=== PATIENT | male | born 1990 | race American Indian/Alaskan Native ===

== ENCOUNTER 2019-01-23 09:48 | Emergency (ER) | payer MEDICAID, OTHER ==
[2019-01-23 09:58] VITALS: TEMP 98.4; BMI 33.7
[2019-01-23] MEDS ORDERED: Albuterol 0.083% Inhal Sol (2.5 mg/3 mL) UD IH STA (10:33)
--- NOTE | 2019-01-23 11:24 | ED PDOC ---
Arrival/HPI - General Chief Complaint: Cough, Cold, Congestion Time Seen by Provider: 01/23/19 09:58 Historian: Patient - History of Present Illness Narrative History of Present Illness (Text): 01/23/19 11:16 28yr old male with a history of asthma presents today with a 3-week history of cough. Patient denies shortness of breath. Patient states he has been having a productive cough that has worsened over the past 3 weeks. Patient states he is getting chest pain only with cough. He denies dizziness or weakness. No headaches. Denies vomiting or diarrhea. No abdominal pain. Patient states the cough is with yellow sputum. No medications have been taken at home. Patient states he has a prior history of asthma which developed after he quit smoking. Patient states he recently started smoking 3 months ago. Patient denies fevers or chills. He denies sick contacts. Pt is complaining of nasal congestion. No other complaints. Past Medical History - Provider Review Nursing Documentation Reviewed: Yes - Travel History Have you recently traveled outside [place] w/in the past 3 mons?: No - Psychiatric Hx Substance Use: No Family/Social History - Physician Review Nursing Documentation Reviewed: Yes Family/Social History: Unknown Family HX Smoking Status: Never Smoked Hx Alcohol Use: No Hx Substance Use: No Allergies/Home Meds Allergies/Adverse Reactions: Allergies No Known Allergies Allergy (Verified 01/23/19 10:05) Review of Systems - Review of Systems Constitutional: absent: Fatigue, Fevers ENT: Sinus Congestion. absent: Sore Throat Respiratory: Cough, Sputum, Wheezing. absent: SOB Cardiovascular: Chest Pain (only with cough). absent: Palpitations Gastrointestinal: absent: Abdominal Pain, Nausea, Vomiting Genitourinary Male: absent: Dysuria Musculoskeletal: absent: Arthralgias, Back Pain, Neck Pain Skin: absent: Rash Neurological: absent: Headache, Dizziness Psychiatric: absent: Anxiety, Depression Physical Exam Vital Signs Reviewed: Yes Vital Signs Temp Pulse Resp BP Pulse Ox 01/23/19 09:57 98.4 F 76 18 115/70 97 Temperature: Afebrile Blood Pressure: Normal Pulse: Regular Respiratory Rate: Normal Appearance: Positive for: Well-Appearing, Non-Toxic, Comfortable Pain Distress: None Mental Status: Positive for: Alert and Oriented X 3 - Systems Exam Head: Present: Atraumatic Ears: Present: Normal Mouth: Present: Moist Mucous Membranes, Normal Lips, Normal Tounge Pharnyx: Present: Normal. No: ERYTHEMA, Peritonsilar Swelling, Uvular Deviation Nose (External): Present: Atraumatic Nose (Internal): Present: Clear Mucous Neck: Present: Normal Range of Motion, Trachea Midline Respiratory/Chest: Present: Clear to Auscultation, Good Air Exchange. No: Respiratory Distress, Accessory Muscle Use, Wheezes, Retracting, Rhonchi, Tachypneic Cardiovascular: Present: Regular Rate and Rhythm, Normal S1, S2. No: Murmurs Abdomen: No: Tenderness Medical Decision Making ED Course and Treatment: 01/23/19 11:25 Patient is nontoxic well-appearing in no distress. Vital signs are stable. albuterol neb given; tylenol PO predisone cxr; wnl Patient is nontoxic well-appearing in no distress resting comfortably Zithromax Patient reassessment: Patient is feeling better after medications. Vital signs are stable. Lungs are clear to auscultation. I advised follow up with primary care physician within the next 2 days. I advised increase fluids and return if symptoms worsen persist or if new symptoms develop. Advised taking medications as prescribed. Patient verbalizes understanding of discharge instructions and need for immediate followup. All aspects of this case were discussed the attending of record. IMPRESSION; cough Motrin one tablet every 6 hours as needed for pain Zithromax one tablet once daily x4 days Prednisone daily x4 days Albuterol nebulizer use 3 times daily as needed for cough Increase fluids Followup with primary care physician the next 2 days Return if symptoms worsen persist or if new symptoms develop Reassessment Condition: Re-examined, Improved - RAD Interpretation Radiology Orders: 01/23/19 10:34 CHEST TWO VIEWS (PA/LAT) [RAD] Stat - Medication Orders Current Medication Orders: Discontinued Medications Acetaminophen (Tylenol 325mg Tab) 975 mg PO STAT STA Stop: 01/23/19 10:35 Last Admin: 01/23/19 10:41 Dose: 975 mg MAR Pain/Vitals Document 01/23/19 10:41 MA (Rec: 01/23/19 10:41 MA [facility]-[id number]) Pain Reassessment Is This A Pain ReAssessment? Yes Sleep Is patient sleeping during reassessment? No Presence of Pain Presence of Pain Yes Pain Scale Used Protocol: PSCALES Pain Scale Used Numeric Location Pain Location Body Site Chest Intensity 2 Scale Used Numeric Albuterol Sulfate (Albuterol 0.083% Inhal Penny (2.5 Mg/3 Ml) Ud) 2.5 mg IH STAT STA Stop: 01/23/19 10:34 Last Admin: 01/23/19 10:41 Dose: 2.5 mg Disposition/Present on Arrival - Present on Arrival Any Indicators Present on Arrival: No History of DVT/PE: No History of Uncontrolled Diabetes: No Urinary Catheter: No History of Decub. Ulcer: No History Surgical Site Infection Following: None - Disposition Have Diagnosis and Disposition been Completed?: Yes Diagnosis: Cough Disposition: HOME/ ROUTINE Disposition Time: 11:47 Patient Plan: Discharge Condition: GOOD Discharge Instructions (ExitCare): Cough, Adult (DC) Additional Instructions: Motrin one tablet every 6 hours as needed for pain Zithromax one tablet once daily x4 days Prednisone daily x4 days Albuterol nebulizer use 3 times daily as needed for cough albuterol inhaler every 4-6 hours as needed for cough. Increase fluids Followup with primary care physician the next 2 days Return if symptoms worsen persist or if new symptoms develop Prescriptions: Albuterol HFA [Ventolin HFA 90 mcg/actuation (8 g)] 2 puff IH [id number] PRN #1 inhaler PRN Reason: Cough Albuterol 0.083% [Albuterol 0.083% Inhal Penny (2.5 mg/3 ml) UD] 1 vial IH TID PRN #1 packet PRN Reason: Cough Azithromycin [Zithromax] 250 mg PO DAILY #4 tab Ibuprofen [Motrin] 600 mg PO Q6H PRN #20 tab PRN Reason: pain/fever reduction Nebulizer [Compact Compressor Nebulizer] 1 dev XX PRN PRN #1 dev PRN Reason: Cough predniSONE [predniSONE Tab] 2 tab PO DAILY #8 tab Referrals: Madeline Billy MD [Medical Doctor] - Follow up with primary Polo Hayden MD [Staff Provider] - Follow up with primary [facility] [employer] Service [Outside] - Follow up with primary Forms: [employer] ([place]), WORK NOTE
[2019-01-23 12:08] VITALS: BP 117/72; PULSE 74; RESP 16; O2SAT 99
--- NOTE | 2019-01-23 12:18 | RAD ---
Date of service: 01/23/2019 HISTORY: cough x 3 weeks COMPARISON: No prior. TECHNIQUE: Chest PA and lateral views FINDINGS: LUNGS: No active pulmonary disease. PLEURA: No significant pleural effusion identified. No pneumothorax apparent. CARDIOVASCULAR: No aortic atherosclerotic calcification present. Normal cardiac size. No pulmonary vascular congestion. OSSEOUS STRUCTURES: No significant abnormalities. VISUALIZED UPPER ABDOMEN: Normal. OTHER FINDINGS: None. IMPRESSION: No active disease.
== END 2019-01-23 12:08 | disposition home or self-care (01) ==
LOC: ED 09:48 → MERGE 09:48 → ED 12:08
DX: R05 Cough (principal); Z87.891 Personal history of nicotine dependence